=== PATIENT | female | born 1965 | race Hispanic/Latino ===

== ENCOUNTER → 2024-01-21 | Outpatient (REF) | payer OTHER | LOC: MAMMO 10:09 | PROVIDERS: ATTEND Internal Medicine | DX: M47.816 Spondylosis without myelopathy or radiculopathy, lumbar region (principal); M47.812 Spondylosis without myelopathy or radiculopathy, cervical region; Z12.31 Encounter for screening mammogram for malignant neoplasm of breast | CPT/HCPCS: 72050; 72110; 77067 ==

== ENCOUNTER → 2024-02-03 | Outpatient (REF) | payer OTHER | LOC: DX 12:48 | PROVIDERS: ATTEND Internal Medicine | DX: M85.88 Other specified disorders of bone density and structure, other site (principal) | CPT/HCPCS: 77080 ==